=== PATIENT | male | born 1975 | race American Indian/Alaskan Native ===

== ENCOUNTER 2016-06-14 19:41 | Inpatient (IN) | payer OTHER ==
--- NOTE | 2016-06-14 20:02 | C.PDOC ---
History Of Present Illness Patient presents to the ER with a complaint of polyuria, polydipsia, and polyphagia. Denies fever, chills, dysuria, or nausea. Time Seen by Provider: 06/14/16 20:02 Chief Complaint (Nursing): Male Genitourinary History Per: Patient History/Exam Limitations: no limitations Onset/Duration Of Symptoms: Hrs Current Symptoms Are (Timing): Still Present Severity: Mild Pain Scale Rating Of: 3 Quality Of Discomfort: Other (No pain) Associated Symptoms: Urinary Symptoms (Polyuria), Other (Polydipsia, polyphagia) . denies: Fever, Chills, Nausea Alleviating Factors: None Recent travel outside of the [place]: No Additional History Per: Patient Past Medical History Reviewed: Historical Data, Nursing Documentation, Vital Signs Vital Signs: Last Vital Signs Temp 98.7 F 06/14/16 19:45 Pulse 108 H 06/14/16 20:28 Resp 18 06/14/16 20:28 BP 130/82 06/14/16 20:28 Pulse Ox 97 06/14/16 21:00 - Medical History PMH: No Chronic Diseases Surgical History: No Surg Hx Family History: States: No Known Family Hx - Social History Hx Alcohol Use: No Hx Substance Use: No - Immunization History Hx Tetanus Toxoid Vaccination: No Hx Influenza Vaccination: No Hx Pneumococcal Vaccination: No Review Of Systems Constitutional: Positive for: Other (Polyphagia, polydipsia). Negative for: Fever, Chills Gastrointestinal: Negative for: Nausea Genitourinary: Positive for: Frequency (Polydipsia). Negative for: Dysuria Physical Exam - Physical Exam Appears: Well, Non-toxic Skin: Warm, Dry Head: Atraumatic Eye(s): bilateral: Normal Inspection, PERRL, EOMI Oral Mucosa: Dry Lips: Other (Dry) Neck: Supple Chest: Symmetrical, No Tenderness Cardiovascular: Rhythm Regular, No Murmur Respiratory: No Rales, No Rhonchi, No Wheezing Gastrointestinal/Abdominal: Soft, No Tenderness Back: Normal Inspection Extremity: Normal ROM, No Pedal Edema Extremity: Bilateral: Atraumatic, Normal Color And Temperature, Normal ROM Neurological/Psych: Oriented x3, Normal Speech, Normal Cognition Gait: Steady ED Course And Treatment - Laboratory Results Result Diagrams: 06/14/16 20:14 06/14/16 20:14 ECG: Interpreted By Me, Viewed By Me ECG Rhythm: Sinus Rhythm (95), Nonspecific Changes O2 Sat by Pulse Oximetry: 97 Pulse Ox Interpretation: Normal - Radiology CXR: Interpreted by Me CXR Interpretation: No: Infiltrates, Fracture, Pnemothorax Progress Note: EKG, blood work, CXR, and urinalysis. IV fluids administered. Critical Care Time - Critical Care Note Total Time (in mins): 30 Documented critical care: time excludes all time spent performing seperately billable procedures. Disposition Discussed With Dr.: José Miguel Ramos Comment: accepted the pt on his service and took over the care at 10PM Doctor Will See Patient In The: ED Counseled Patient/Family Regarding: Studies Performed, Diagnosis - Disposition Disposition: HOSPITALIZED Disposition Time: 20:02 Condition: FAIR - POA Present On Arrival: Poor Glycemic Control - Clinical Impression Clinical Impression: Diabetes mellitus, new onset - Scribe Statement The provider has reviewed the documentation as recorded by the Scribe Darvin Kay All medical record entries made by the Scribe were at my direction and personally dictated by me. I have reviewed the chart and agree that the record accurately reflects my personal performance of the history, physical exam, medical decision making, and the department course for this patient. I have also personally directed, reviewed, and agree with the discharge instructions and disposition. Decision To Admit - Pt Status Changed To: Hospital Disposition Of: Inpatient - Admit Certification Admit to Inpatient:: After my assessment, the patient will require hospitalization for at least two midnights. This is because of the severity of symptoms shown, intensity of services needed, and/or the medical risk in this patient being treated as an outpatient. - InPatient: Physician Admission Certification: I certify that this patient requires 2 or more midnights of care for the following reason:: After my assessment, the patient will require hospitalization for at least two midnights. This is because of the severity of symptoms shown, intensity of services needed, and/or the medical risk in this patient being treated as an outpatient. - . Bed Request Type: Regular Admitting Physician: José Miguel Ramos Patient Diagnosis: Diabetes mellitus, new onset
[2016-06-14] MEDS ORDERED: Sodium Chloride 0.9% 1,000 ML IV ONE ×2 (20:04→21:27)
[2016-06-14 20:19] LABS: BASO # 0.1 K/uL (0.0-0.2); BASO % 0.6 % (0.0-2.0); EOS # 0.1 K/uL (0.0-0.7); EOS % 0.8 % (0.0-4.0); HEMATOCRIT 46.8 % (35.0-51.0); LYMPH # 2.7 K/uL (1.0-4.3); LYMPH % 22.9 % (20.0-40.0); MEAN CELL VOLUME 86.8 fL (80.0-94.0); MEAN CORPUSCULAR HEMOGLOBIN 30.1 pg (27.0-31.0); MEAN CORPUSCULAR HGB CONC 34.6 g/dL (33.0-37.0); MONO # 0.5 K/uL (0.0-0.8); MONO % 4.3 % (0.0-10.0); NRBC % 0.1 % (0.0-2.0); RED CELL DISTRIBUTION WIDTH 13.2 % (11.5-14.5); WHITE BLOOD COUNT 11.7 K/uL (4.8-10.8)
[2016-06-14 20:29] LABS: CHLORIDE 94 mmol/L (98-107); POTASSIUM 5.4 mmol/L (3.6-5.2); SODIUM 128 mmol/L (132-148)
[2016-06-14 20:31] LABS: AST/SGOT 40 U/L (17-59); BILIRUBIN,TOTAL 1.6 mg/dL (0.2-1.3); CARBON DIOXIDE 12 mmol/L (22-30); GFR AFRICAN-AMERICAN > 60
[2016-06-14 20:32] LABS: ALB/GLOB RATIO 1.2 (1.0-2.1); ALKALINE PHOSPHATASE 111 U/L (38-126); ALT/SGPT 70 U/L (21-72); BLOOD UREA NITROGEN 26 mg/dL (9-20); CALCIUM 8.8 mg/dl (8.6-10.4); TOTAL PROTEIN 8.2 g/dL (6.3-8.3)
[2016-06-14 20:33] LABS: GLUCOSE,RANDOM 551 mg/dL (75-110)
[2016-06-14 20:41] LABS: RBC URINE < 1 /hpf (0-3); URINE BACTERIA RARE (<OCC); URINE BILIRUBIN NEGATIVE (NEGATIVE); URINE BLOOD NEGATIVE (NEGATIVE); URINE COLOR Straw (YELLOW); URINE GLUCOSE (UA) 3+ mg/dL (Normal); URINE KETONE 2+ mg/dL (NEGATIVE); URINE LEUKOCYTE ESTERASE NEG Leu/uL (Negative); URINE PROTEIN NEGATIVE (NEGATIVE); URINE UROBILINOGEN NORMAL mg/dL (0.2-1.0); WBC URINE < 1 /hpf (0-5)
--- NOTE | 2016-06-14 21:35 | CP.PCM.HP ---
<Richi Rose - Last Filed: 06/14/16 23:01> History of Present Illness - History of Present Illness History of Present Illness: CC: "increased thirst, fatigue, increased urination" 40 M with no PMH presented to [facility] with complaint of polydipsia, polyuria, polyphagia, and fatigue. Patient stated that symptoms have been going on for about 1.5 weeks. He stated that have gradually been getting worse. He has intermittently experienced similar symptoms over the last 2 years. Patient stated that he came in today because today has been the worst these symptoms have been and could not take it anymore. Patient reports that he hasnt seen a physician in a few years. Patient is currently denying any pain. Patient does not exercise or follow a diet regimen. Nothing he notices alleviates or exacerbates his ymptoms. Admits to wekaness, fatigue, blurry vision. Denies fveer/chills, cp, sob, palpitations, abd pain, n/v/d, constipation, incontinence , numbness/tingling, vertigo, dizziness/lightheadedness, syncope. PMD: Denies PMH: Denies Meds: Denies Alergy: NKDA PSH: Denies Hosp: Denies FH: DM, CVA Social: Lives with significant other, denies tobacco/ETOH/illicit drug use Present on Admission - Present on Admission Any Indicators Present on Admission: Yes History of DVT/PE: No History of Uncontrolled Diabetes: Yes Urinary Catheter: No Decubitus Ulcer Present: No Review of Systems - Constitutional Constitutional: Fatigue, Increased Appetite, Weakness. absent: Chills, Excessive Sweating, Fever, Headache - EENT Eyes: Blurred Vision, Change in Vision Ears: absent: Ear Discharge, Ear Pain Nose/Mouth/Throat: Dry Mouth. absent: Bleeding Gums, Change in Voice, Hoarsness - Cardiovascular Cardiovascular: absent: Chest Pain, Chest Pain at Rest, Chest Pain with Activity , Diaphoresis, Dyspnea, Irregular Heart Rhythm, Lightheadedness, Palpitations, Pedal Edema, Syncope - Respiratory Respiratory: absent: Cough, Dyspnea, Hemoptysis, Dyspnea on Exertion - Gastrointestinal Gastrointestinal: absent: Abdominal Pain, Diarrhea, Nausea, Vomiting - Genitourinary Genitourinary: Nocturia, Urinary Frequency. absent: Difficulty Urinating, Dysuria, Urinary Incontinence, Urinary Hesitance, Urinary Urgency - Musculoskeletal Musculoskeletal: absent: Arthralgias, Back Pain, Loss of Height - Integumentary Integumentary: absent: Bleeding Lesions, New Lesions - Neurological Neurological: Weakness. absent: Dizziness, Numbness, Headaches, Loss of Vision , Paresthesias, Syncope, Tingling, Vertigo - Psychiatric Psychiatric: absent: Homicidal Ideation, Suicidal Ideation - Endocrine Endocrine: Fatigue, Polydipsia, Polyphagia, Polyuria. absent: Excessive Sweating, Heat Intolorance, Palpitations - Hematologic/Lymphatic Hematologic: absent: Easy Bleeding, Easy Bruising, Lymphadenopathy Past Patient History - Past Social History Smoking Status: Never Smoked - PSYCHIATRIC Hx Substance Use: No - SURGICAL HISTORY Hx Surgeries: No Meds Allergies/Adverse Reactions: Allergies Allergy/AdvReac Type Severity Reaction Status Date / Time No Known Allergies Allergy Verified 06/14/16 20:04 Physical Exam - Constitutional Appears: No Acute Distress - Head Exam Head Exam: ATRAUMATIC, NORMOCEPHALIC - Eye Exam Eye Exam: EOMI, Normal appearance Pupil Exam: PERRL - ENT Exam ENT Exam: Mucous Membranes Dry - Neck Exam Neck exam: Positive for: Normal Inspection - Respiratory Exam Respiratory Exam: Clear to Auscultation Bilateral, NORMAL BREATHING PATTERN - Cardiovascular Exam Cardiovascular Exam: RRR, +S1, +S2 - GI/Abdominal Exam GI & Abdominal Exam: Normal Bowel Sounds, Soft. absent: Distended, Firm, Guarding, Rebound, Tenderness - Extremities Exam Extremities exam: Positive for: normal capillary refill, pedal pulses present. Negative for: calf tenderness, pedal edema - Back Exam Back exam: absent: CVA tenderness (L), CVA tenderness (R) - Neurological Exam Neurological exam: Alert, CN II-XII Intact, Oriented x3, Reflexes Normal - Psychiatric Exam Psychiatric exam: Normal Affect, Normal Mood - Skin Skin Exam: Dry, Intact, Normal Color, Warm Results - Vital Signs Recent Vital Signs: Last Vital Signs Temp 98.7 F 06/14/16 19:45 Pulse 108 H 06/14/16 20:28 Resp 18 06/14/16 20:28 BP 130/82 06/14/16 20:28 Pulse Ox 97 06/14/16 21:00 - Labs Result Diagrams: 06/14/16 20:14 06/14/16 20:14 Labs: Laboratory Results - last 24 hr 06/14/16 06/14/16 06/14/16 20:14 20:14 20:33 WBC 11.7 H RBC 5.39 Hgb 16.2 Hct 46.8 MCV 86.8 MCH 30.1 MCHC 34.6 RDW 13.2 Plt Count 184 MPV 11.0 Neut % (Auto) 71.4 Lymph % (Auto) 22.9 [place] % (Auto) 4.3 Eos % (Auto) 0.8 Baso % (Auto) 0.6 Neut # 8.3 H Lymph # 2.7 [place] # 0.5 Eos # 0.1 Baso # 0.1 Sodium 128 L Potassium 5.4 H Chloride 94 L Carbon Dioxide 12 L Anion Gap 27 H BUN 26 H Creatinine 1.4 Est GFR ( Amer) > 60 Est GFR (Non-Af Amer) 56 Random Glucose 551 H* Calcium 8.8 Total Bilirubin 1.6 H AST 40 ALT 70 Alkaline Phosphatase 111 Total Protein 8.2 Albumin 4.5 Globulin 3.7 Albumin/Globulin Ratio 1.2 Lipase 94 Urine Color Straw Urine Clarity Clear Urine pH 5.0 Ur Specific [place] 1.031 H Urine Protein Negative Urine Glucose (UA) 3+ H Urine Ketones 2+ H Urine Blood Negative Urine Nitrate Negative Urine Bilirubin Negative Urine Urobilinogen Normal Ur Leukocyte Esterase Neg Urine WBC (Auto) < 1 Urine RBC (Auto) < 1 Ur Squamous Epith Cells < 1 Urine Bacteria Rare Serum Ketones Small Assessment & Plan - Assessment and Plan (Free Text) Plan: 1. Hyperglycemia Med/surg NS 150 cc/hr ISS Accuchecks EKG HA1c tsh/t4, Lipid panel BNP 2. Hyperkalemia K+ 5.4 asymptomatic EKG Insulin 10 units SC ONCE follow up BMP at midnight 3. Prophylactic Measures SCDs Lovenox 40 mg SC daily Protonix 40 mg PO daily HHD with mod carb <José Miguel Ramos - Last Filed: 06/15/16 06:32> Results - Vital Signs Recent Vital Signs: Last Vital Signs Temp 98.4 F 06/15/16 02:30 Pulse 90 06/15/16 02:30 Resp 18 06/15/16 02:30 BP 129/82 06/15/16 02:30 Pulse Ox 100 06/15/16 02:30 - Labs Result Diagrams: 06/15/16 04:11 06/15/16 04:11 Labs: Laboratory Results - last 24 hr 06/14/16 06/15/16 06/15/16 23:24 04:11 04:11 WBC 11.4 H RBC 4.74 Hgb 14.0 D Hct 41.3 MCV 87.2 MCH 29.5 MCHC 33.8 RDW 13.5 Plt Count 140 MPV 10.7 Neut % (Auto) 67.6 Lymph % (Auto) 24.9 [place] % (Auto) 5.7 Eos % (Auto) 0.9 Baso % (Auto) 0.9 Neut # 7.7 H Lymph # 2.8 [place] # 0.7 Eos # 0.1 Baso # 0.1 PT 11.0 INR 1.0 APTT 26 Sodium Potassium Chloride Carbon Dioxide Anion Gap BUN Creatinine Est GFR ( Amer) Est GFR (Non-Af Amer) POC Glucose (mg/dL) 316 H Random Glucose Calcium Phosphorus Magnesium Total Bilirubin AST ALT Alkaline Phosphatase Total Protein Albumin Globulin Albumin/Globulin Ratio 06/15/16 04:11 WBC RBC Hgb Hct MCV MCH MCHC RDW Plt Count MPV Neut % (Auto) Lymph % (Auto) [place] % (Auto) Eos % (Auto) Baso % (Auto) Neut # Lymph # [place] # Eos # Baso # PT INR APTT Sodium 136 Potassium 4.1 Chloride 106 Carbon Dioxide 15 L Anion Gap 19 BUN 20 Creatinine 1.1 Est GFR ( Amer) > 60 Est GFR (Non-Af Amer) > 60 POC Glucose (mg/dL) Random Glucose 253 H Calcium 7.6 L Phosphorus 3.3 Magnesium 2.3 Total Bilirubin 1.2 AST 33 ALT 43 Alkaline Phosphatase 79 Total Protein 6.3 Albumin 3.4 L D Globulin 2.9 Albumin/Globulin Ratio 1.2 Assessment & Plan - Date & Time Date: 06/15/16 (I have seen and examined the patient. I agree with the findings and plan of care as documented by Dr. Rose. Patient with new onset diabetes. Not previously diagnosed but had been experiencing symptoms consistent with diabetes in last 1.5 years. Not acidotic. IVF. Insulin with accuchecks. Also with hyperkalemia. Receiving insulin and fluids. Recheck BMP in AM. Monitor for acute changes.) Time: 06:29 Attending/Attestation - Attestation I have personally seen and examined this patient.: Yes I have fully participated in the care of the patient.: Yes I have reviewed all pertinent clinical information: Yes
[2016-06-14] MEDS ORDERED: Sodium Chloride 0.9% 1,000 ML ONE (21:43)
[2016-06-14] MEDS ORDERED: (Novolin R) Insulin Human Regular 100 units/ml vial SC ONE (21:48)
[2016-06-14] MEDS ORDERED: (Novolin R) Insulin Human Regular 100 units/ml vial ONE ×2 (21:50→21:51)
[2016-06-15] MEDS: Sodium Chloride 0.9% 1,000 ML IV SCH ×3 (01:06→19:35)
[2016-06-15 04:14] LABS: BASO # 0.1 K/uL (0.0-0.2); BASO % 0.9 % (0.0-2.0); EOS # 0.1 K/uL (0.0-0.7); EOS % 0.9 % (0.0-4.0); HEMATOCRIT 41.3 % (35.0-51.0); LYMPH # 2.8 K/uL (1.0-4.3); LYMPH % 24.9 % (20.0-40.0); MEAN CELL VOLUME 87.2 fL (80.0-94.0); MEAN CORPUSCULAR HEMOGLOBIN 29.5 pg (27.0-31.0); MEAN CORPUSCULAR HGB CONC 33.8 g/dL (33.0-37.0); MEAN PLATELET VOLUME 10.7 fL (7.2-11.7); MONO # 0.7 K/uL (0.0-0.8); MONO % 5.7 % (0.0-10.0); NRBC % 0.2 % (0.0-2.0); RED CELL DISTRIBUTION WIDTH 13.5 % (11.5-14.5); WHITE BLOOD COUNT 11.4 K/uL (4.8-10.8)
[2016-06-15 04:23] LABS: CHLORIDE 106 mmol/L (98-107)
[2016-06-15 04:24] LABS: POTASSIUM 4.1 mmol/L (3.6-5.2); SODIUM 136 mmol/L (132-148)
[2016-06-15 04:26] LABS: ALB/GLOB RATIO 1.2 (1.0-2.1); ALKALINE PHOSPHATASE 79 U/L (38-126); ALT/SGPT 43 U/L (21-72); AST/SGOT 33 U/L (17-59); BILIRUBIN,TOTAL 1.2 mg/dL (0.2-1.3); BLOOD UREA NITROGEN 20 mg/dL (9-20); CARBON DIOXIDE 15 mmol/L (22-30); GFR AFRICAN-AMERICAN > 60; GLUCOSE,RANDOM 253 mg/dL (75-110); PHOSPHOROUS 3.3 mg/dL (2.5-4.5); TOTAL PROTEIN 6.3 g/dL (6.3-8.3)
[2016-06-15 04:27] LABS: CALCIUM 7.6 mg/dl (8.6-10.4); MAGNESIUM 2.3 mg/dL (1.6-2.3)
[2016-06-15] MEDS ORDERED: (Novolin R) Insulin Human Regular 100 units/ml vial ONE ×2 (07:28→12:53)
[2016-06-15] MEDS: (Novolin R) Insulin Human Regular 100 units/ml vial SC SCH ×4 (07:28→21:54)
--- NOTE | 2016-06-15 08:38 | RAD ---
HISTORY: Diabetic COMPARISON: None available. TECHNIQUE: Chest, one view. FINDINGS: Examination limited by habitus. LUNGS: No focal consolidation. Please note that chest x-ray has limited sensitivity for the detection of pulmonary masses. PLEURA: No significant pleural effusion identified. No definite pneumothorax . CARDIOVASCULAR: The cardiomediastinal silhouette appears within normal limits of size. OSSEOUS STRUCTURES: No acute osseous abnormality identified. VISUALIZED UPPER ABDOMEN: Unremarkable. OTHER FINDINGS: None. IMPRESSION: No focal consolidation, significant pleural effusion, or definite pneumothorax identified.
--- NOTE | 2016-06-15 09:17 | CP.PCM.PN ---
<Jazmin Kamara - Last Filed: 06/15/16 15:13> Subjective - Date & Time of Evaluation Date of Evaluation: 06/15/16 Time of Evaluation: 09:16 - Subjective Subjective: Patient seen and examined at bedside. He reports he feels improved from initial presentation to emergency room. Patient states he is less weak and is having less urinary frequency. Patient reports blurry vision. He denies abdominal pain and shortness of breath. Patient is aware of diagnosis of diabetes. He admits to family history of diabetes including his 50 year old brother with history of stroke who was recently newly diagnosed. Patient to have dietary counseling. He denies chest pain and shortness of breath. Objective - Vital Signs/Intake and Output Vital Signs (last 24 hours): Temp Pulse Resp BP Pulse Ox 98.2 F 72 18 125/78 99 06/15/16 06:30 06/15/16 07:23 06/15/16 07:23 06/15/16 07:23 06/15/16 07:23 - Medications Medications: Current Medications Enoxaparin Sodium (Lovenox) 40 mg SC DAILY [facility] Sodium Chloride (Sodium Chloride 0.9%) 1,000 mls @ 150 mls/hr IV .Q6H40M [facility] Last Admin: 06/15/16 06:54 Dose: 150 mls/hr Insulin Human Regular (Novolin R) 0 unit SC ACHS [facility] PRN Reason: Protocol Last Admin: 06/15/16 07:28 Dose: 2 unit Ondansetron HCl (Zofran Inj) 4 mg IVP Q6 PRN PRN Reason: Nausea/Vomiting Pantoprazole Sodium (Protonix Ec Tab) 40 mg PO DAILY [facility] - Labs Labs: 06/15/16 04:11 06/15/16 04:11 PT 11.0 SECONDS (9.7-12.2) 06/15/16 04:11 INR 1.0 06/15/16 04:11 APTT 26 SECONDS (21-34) 06/15/16 04:11 - Constitutional Appears: Non-toxic, No Acute Distress - Head Exam Head Exam: ATRAUMATIC, NORMAL INSPECTION, NORMOCEPHALIC - Eye Exam Eye Exam: EOMI, Normal appearance, PERRL - ENT Exam ENT Exam: Mucous Membranes Moist - Neck Exam Neck Exam: Full ROM, Normal Inspection - Respiratory Exam Respiratory Exam: Clear to Ausculation Bilateral, NORMAL BREATHING PATTERN. absent: Rales, Rhonchi, Wheezes - Cardiovascular Exam Cardiovascular Exam: +S1, +S2. absent: Tachycardia - GI/Abdominal Exam GI & Abdominal Exam: Soft, Normal Bowel Sounds. absent: Firm, Guarding, Tenderness - Extremities Exam Extremities Exam: Normal Inspection. absent: Pedal Edema, Tenderness - Neurological Exam Neurological Exam: Alert, Awake, Oriented x3 - Psychiatric Exam Psychiatric exam: Normal Affect, Normal Mood - Skin Skin Exam: Intact, Normal Color, Warm Assessment and Plan - Assessment and Plan (Free Text) Assessment: New Onset Diabetes Mellitus Type II follow-up hemoglobin a1c Started on Novolin sliding scale and Lantus 10 U sc daily NS 150 cc/hr Accuchecks Diabetic Dietary Counseling Monitor glucose Hypertriglycerides Triglycerides of 1332 Started on Gemfibrozil 600 mg po BID Hypercholesterol Cholesterol 241 Started on Crestor 5 mg po HS Hyperkalemia Resolved potassium 4.1 K+ 5.4 asymptomatic EKG Insulin 10 units SC ONCE follow up BMP at midnight Prophylactic Measures SCDs Lovenox 40 mg SC daily Protonix 40 mg PO daily HHD with mod carb <Brian Tinoco - Last Filed: 06/15/16 16:55> Objective - Vital Signs/Intake and Output Vital Signs (last 24 hours): Temp Pulse Resp BP Pulse Ox 98.3 F 75 18 162/88 H 97 06/15/16 15:40 06/15/16 15:40 06/15/16 15:40 06/15/16 15:40 06/15/16 15:40 - Medications Medications: Current Medications Enoxaparin Sodium (Lovenox) 40 mg SC DAILY [facility] Last Admin: 06/15/16 10:30 Dose: 40 mg Gemfibrozil (Lopid) 600 mg PO BID [facility] Sodium Chloride (Sodium Chloride 0.9%) 1,000 mls @ 150 mls/hr IV .Q6H40M [facility] Last Admin: 06/15/16 06:54 Dose: 150 mls/hr Insulin Glargine (Lantus) 10 unit SC DAILY [facility] Last Admin: 06/15/16 14:50 Dose: 10 units Insulin Human Regular (Novolin R) 0 unit SC [facility] PRN Reason: Protocol Last Admin: 06/15/16 13:00 Dose: 4 unit Ondansetron HCl (Zofran Inj) 4 mg IVP Q6 PRN PRN Reason: Nausea/Vomiting Pantoprazole Sodium (Protonix Ec Tab) 40 mg PO DAILY [facility] Last Admin: 06/15/16 10:30 Dose: 40 mg Rosuvastatin Calcium (Crestor) 5 mg PO HS [facility] - Labs Labs: 06/15/16 04:11 06/15/16 04:11 PT 11.0 SECONDS (9.7-12.2) 06/15/16 04:11 INR 1.0 06/15/16 04:11 APTT 26 SECONDS (21-34) 06/15/16 04:11 Attending/Attestation - Attestation I have personally seen and examined this patient.: Yes I have fully participated in the care of the patient.: Yes I have reviewed all pertinent clinical information, including history, physical exam and plan: Yes Notes (Text): 06/15/16 16:53 Patient seen and examined at bedside Patient appears comfortable Stated that he is feeling better now after treatment #1. New-onset diabetes mellitus. Patient started on insulin sliding scale and Lantus Follow-up per hemoglobin A1c level. He will be discharged on oral hypoglycemic agents #2. Hypertriglyceridemia .Patient's hypertriglyceridemia is likely secondary to uncontrolled diabetes mellitus However patient started on gemfibrozil. We will check the lipid level again. Hypertriglyceridemia should improve with the better control were diabetes mellitus. #3. Hypercholesterolemia. Patient started on Crestor. Discharge planning likely in the next 24 hours if the patient is medically stable.
[2016-06-15] MEDS: Pantoprazole 40 mg EC Tab PO SCH (10:30)
[2016-06-15] MEDS: Enoxaparin 40 mg Syringe SC SCH (10:30)
[2016-06-15 12:49] LABS: CHLORIDE 103 mmol/L (98-107); SODIUM 134 mmol/L (132-148)
[2016-06-15 12:50] LABS: POTASSIUM 4.5 mmol/L (3.6-5.2)
[2016-06-15 12:52] LABS: CARBON DIOXIDE 18 mmol/L (22-30); CHOLESTEROL 241 mg/dL (0-199); GFR AFRICAN-AMERICAN > 60
[2016-06-15 12:53] LABS: BLOOD UREA NITROGEN 16 mg/dL (9-20); CALCIUM 7.9 mg/dl (8.6-10.4); GLUCOSE,RANDOM 335 mg/dL (75-110)
[2016-06-15 13:19] LABS: T4 5.42 ug/dL (5.5-11.0)
[2016-06-15 13:30] LABS: THYROID STIMULATING HORMONE 0.57 mIU/L (0.46-4.68)
[2016-06-15] MEDS ORDERED: (Lantus) Insulin Glargine, Recombinant SC ONE (14:46)
[2016-06-15] MEDS: (Lantus) Insulin Glargine, Recombinant SC SCH (14:50)
[2016-06-15 15:41] VITALS: O2SAT 97
[2016-06-15] MEDS ORDERED: Influenza Virus Vaccine 45 mcg/0.5 ml Syr IM ONE (18:00)
[2016-06-15] MEDS ORDERED: Pneumococcal 23-Valent Vaccine SC ONE (18:00)
[2016-06-16 00:24] VITALS: RESP 20
[2016-06-16] MEDS: (Novolin R) Insulin Human Regular 100 units/ml vial SC SCH ×3 (08:10→17:46)
[2016-06-16 08:17] LABS: BASO # 0.1 K/uL (0.0-0.2); BASO % 0.9 % (0.0-2.0); EOS # 0.2 K/uL (0.0-0.7); HEMATOCRIT 40.8 % (35.0-51.0); LYMPH # 2.2 K/uL (1.0-4.3); LYMPH % 34.6 % (20.0-40.0); MEAN CELL VOLUME 86.8 fL (80.0-94.0); MEAN CORPUSCULAR HEMOGLOBIN 29.8 pg (27.0-31.0); MEAN CORPUSCULAR HGB CONC 34.3 g/dL (33.0-37.0); MEAN PLATELET VOLUME 10.8 fL (7.2-11.7); MONO # 0.4 K/uL (0.0-0.8); MONO % 6.7 % (0.0-10.0); NRBC % 0.1 % (0.0-2.0); WHITE BLOOD COUNT 6.3 K/uL (4.8-10.8)
[2016-06-16 08:32] LABS: CHLORIDE 104 mmol/L (98-107)
[2016-06-16 08:33] LABS: POTASSIUM 4.5 mmol/L (3.6-5.2); SODIUM 136 mmol/L (132-148)
[2016-06-16 08:34] LABS: ALB/GLOB RATIO 1.2 (1.0-2.1); AST/SGOT 35 U/L (17-59); BILIRUBIN,TOTAL 1.2 mg/dL (0.2-1.3); CARBON DIOXIDE 22 mmol/L (22-30); CHOLESTEROL 238 mg/dL (0-199); GFR AFRICAN-AMERICAN > 60; TOTAL PROTEIN 6.4 g/dL (6.3-8.3)
[2016-06-16 08:35] LABS: ALKALINE PHOSPHATASE 83 U/L (38-126); ALT/SGPT 56 U/L (21-72); BLOOD UREA NITROGEN 13 mg/dL (9-20); CALCIUM 8.1 mg/dl (8.6-10.4); GLUCOSE,RANDOM 289 mg/dL (75-110); PHOSPHOROUS 3.1 mg/dL (2.5-4.5)
[2016-06-16 08:36] LABS: MAGNESIUM 2.1 mg/dL (1.6-2.3)
[2016-06-16] MEDS: Pantoprazole 40 mg EC Tab PO SCH (11:37)
[2016-06-16] MEDS: Enoxaparin 40 mg Syringe SC SCH (11:38)
[2016-06-16] MEDS: (Lantus) Insulin Glargine, Recombinant SC SCH (11:38)
[2016-06-16] MEDS: Sodium Chloride 0.9% 1,000 ML IV SCH (12:10)
--- NOTE | 2016-06-16 15:11 | CP.PCM.DIS ---
<Richi Rose - Last Filed: 06/16/16 17:54> Provider - Provider Date of Admission: 06/14/16 22:37 Attending physician: José Miguel Ramos MD Primary care physician: None Consults: none Time Spent in preparation of Discharge (in minutes): 45 Diagnosis - Discharge Diagnosis (1) Diabetes mellitus, new onset Status: Acute Comment: see hospital course Hospital Course - Lab Results Lab Results: Most Recent Lab Values WBC 6.3 K/uL (4.8-10.8) 06/16/16 08:09 RBC 4.70 Mil/uL (4.40-5.90) 06/16/16 08:09 Hgb 14.0 g/dL (12.0-18.0) 06/16/16 08:09 Hct 40.8 % (35.0-51.0) 06/16/16 08:09 MCV 86.8 fL (80.0-94.0) 06/16/16 08:09 MCH 29.8 pg (27.0-31.0) 06/16/16 08:09 MCHC 34.3 g/dL (33.0-37.0) 06/16/16 08:09 RDW 13.0 % (11.5-14.5) 06/16/16 08:09 Plt Count 126 K/uL (130-400) L 06/16/16 08:09 MPV 10.8 fL (7.2-11.7) 06/16/16 08:09 Neut % (Auto) 54.8 % (50.0-75.0) 06/16/16 08:09 Lymph % (Auto) 34.6 % (20.0-40.0) 06/16/16 08:09 [place] % (Auto) 6.7 % (0.0-10.0) 06/16/16 08:09 Eos % (Auto) 3.0 % (0.0-4.0) 06/16/16 08:09 Baso % (Auto) 0.9 % (0.0-2.0) 06/16/16 08:09 Neut # 3.4 K/uL (1.8-7.0) 06/16/16 08:09 Lymph # 2.2 K/uL (1.0-4.3) 06/16/16 08:09 [place] # 0.4 K/uL (0.0-0.8) 06/16/16 08:09 Eos # 0.2 K/uL (0.0-0.7) 06/16/16 08:09 Baso # 0.1 K/uL (0.0-0.2) 06/16/16 08:09 PT 11.0 SECONDS (9.7-12.2) 06/15/16 04:11 INR 1.0 06/15/16 04:11 APTT 26 SECONDS (21-34) 06/15/16 04:11 Sodium 136 mmol/L (132-148) 06/16/16 08:09 Potassium 4.5 mmol/L (3.6-5.2) 06/16/16 08:09 Chloride 104 mmol/L (98-107) 06/16/16 08:09 Carbon Dioxide 22 mmol/L (22-30) 06/16/16 08:09 Anion Gap 15 (10-20) 06/16/16 08:09 BUN 13 mg/dL (9-20) 06/16/16 08:09 Creatinine 1.1 MG/DL (0.8-1.5) 06/16/16 08:09 Est GFR ( Amer) > 60 06/16/16 08:09 Est GFR (Non-Af Amer) > 60 06/16/16 08:09 POC Glucose (mg/dL) 352 mg/dL (65-110) H 06/16/16 11:05 Random Glucose 289 mg/dL (75-110) H 06/16/16 08:09 Hemoglobin A1c 11.0 % (4.2-6.5) H 06/15/16 12:33 Calcium 8.1 mg/dl (8.6-10.4) L 06/16/16 08:09 Phosphorus 3.1 mg/dL (2.5-4.5) 06/16/16 08:09 Magnesium 2.1 mg/dL (1.6-2.3) 06/16/16 08:09 Total Bilirubin 1.2 mg/dL (0.2-1.3) 06/16/16 08:09 AST 35 U/L (17-59) 06/16/16 08:09 ALT 56 U/L (21-72) 06/16/16 08:09 Alkaline Phosphatase 83 U/L (38-126) 06/16/16 08:09 NT-Pro-B Natriuret Pep 12.9 pg/mL (0-450) 06/14/16 12:30 Total Protein 6.4 g/dL (6.3-8.3) 06/16/16 08:09 Albumin 3.5 g/dL (3.5-5.0) 06/16/16 08:09 Globulin 2.9 gm/dL (2.2-3.9) 06/16/16 08:09 Albumin/Globulin Ratio 1.2 (1.0-2.1) 06/16/16 08:09 Triglycerides 1349 mg/dL (0-149) H 06/16/16 08:09 Cholesterol 238 mg/dL (0-199) H 06/16/16 08:09 LDL Cholesterol Direct < 30 mg/dL (0-129) 06/16/16 08:09 HDL Cholesterol 25 mg/dL (30-70) L 06/16/16 08:09 Lipase 94 U/L (23-300) 06/14/16 20:14 Thyroxine (T4) 5.42 ug/dL (5.5-11.0) L 06/14/16 12:30 TSH 3rd Generation 0.57 mIU/L (0.46-4.68) 06/14/16 12:30 Urine Color Straw (YELLOW) 06/14/16 20:33 Urine Clarity Clear (Clear) 06/14/16 20:33 Urine pH 5.0 (5.0-8.0) 06/14/16 20:33 Ur Specific [place] 1.031 (1.003-1.030) H 06/14/16 20:33 Urine Protein Negative mg/dL (NEGATIVE) 06/14/16 20:33 Urine Glucose (UA) 3+ mg/dL (Normal) H 06/14/16 20:33 Urine Ketones 2+ mg/dL (NEGATIVE) H 06/14/16 20:33 Urine Blood Negative (NEGATIVE) 06/14/16 20:33 Urine Nitrate Negative (NEGATIVE) 06/14/16 20:33 Urine Bilirubin Negative (NEGATIVE) 06/14/16 20:33 Urine Urobilinogen Normal mg/dL (0.2-1.0) 06/14/16 20:33 Ur Leukocyte Esterase Neg Girish/uL (Negative) 06/14/16 20:33 Urine WBC (Auto) < 1 /hpf (0-5) 06/14/16 20:33 Urine RBC (Auto) < 1 /hpf (0-3) 06/14/16 20:33 Ur Squamous Epith Cells < 1 /hpf (0-5) 06/14/16 20:33 Urine Bacteria Rare (<OCC) 06/14/16 20:33 Serum Ketones Small (NEGATIVE) 06/14/16 20:14 - Hospital Course Hospital Course: 40 M with no PMH presented to [facility] with complaint of polydipsia, polyuria, polyphagia, and fatigue. Patient stated that symptoms have been going on for about 1.5 weeks. He stated that have gradually been getting worse. He has intermittently experienced similar symptoms over the last 2 years. Patient stated that he came in today because today has been the worst these symptoms have been and could not take it anymore. Patient reports that he hasnt seen a physician in a few years. Patient is currently denying any pain. Patient does not exercise or follow a diet regimen. Nothing he notices alleviates or exacerbates his ymptoms. Admits to wekaness, fatigue, blurry vision. Denies fveer/chills, cp, sob, palpitations, abd pain, n/v/d, constipation, incontinence , numbness/tingling, vertigo, dizziness/lightheadedness, syncope. Patient was admitted for new onset diabetes milletus. Patient was given 2 L bolus of iv fluids then kept on IV fluids at a high rate. He was given Insulin 10 units SC once in ED. He was placed on insulin sliding scale with accuchecks. The next day, patient was continued on same regimen. His HA1C was determined to be 11.0. He was given a heart healthy and moderate carb consistency diet. He continued on same medical regimen until 06/16 when he was deemed medically stable for discharge by Dr. Russell. He was sent home with glucometer, lancets and test strips. He was also started on Metformin, Januvia, Lopid, and Simvastatin. This is a summary of the hospital course. Please refer to EMR for more specific details. Discharge Exam - Head Exam Head Exam: ATRAUMATIC, NORMAL INSPECTION, NORMOCEPHALIC - Eye Exam Eye Exam: EOMI, Normal appearance Pupil Exam: PERRL - ENT Exam ENT Exam: Mucous Membranes Moist - Neck Exam Neck exam: Normal Inspection - Respiratory Exam Respiratory Exam: Clear to PA & Lateral, NORMAL BREATHING PATTERN - Cardiovascular Exam Cardiovascular Exam: REGULAR RHYTHM, +S1, +S2 - GI/Abdominal Exam GI & Abdominal Exam: Normal Bowel Sounds, Soft. absent: Tenderness - Extremities Exam Extremities exam: normal capillary refill, pedal pulses present - Back Exam Back exam: absent: CVA tenderness (L), CVA tenderness (R) - Neurological Exam Neurological exam: Alert, CN II-XII Intact, Oriented x3 - Psychiatric Exam Psychiatric exam: Normal Affect, Normal Mood - Skin Skin Exam: Dry, Intact, Normal Color, Warm Discharge Plan - Discharge Medications Prescriptions: Blood Sugar Diagnostic [Test Strips] 1 each ACHS #180 strip RX: Gemfibrozil [Lopid] 600 mg PO BID #60 tab Lancets [Glucocom Lancets] 1 each ACHS #180 each RX: metFORMIN [glucOPHAGE] 1,000 mg PO BID #60 tab RX: Simvastatin 10 mg PO HS #30 tablet SITagliptin [Januvia] 50 mg PO BID #60 tab - Follow Up Plan Condition: STABLE Disposition: HOME/ ROUTINE Instructions: Gemfibrozil (By mouth), Simvastatin (By mouth), Metformin (By mouth), Sitagliptin (By mouth), How to Check Your Blood Sugar (DC), How to Check Your Blood Sugar (GEN), Diabetes Mellitus Type 2 in Adults (DC), Diabetes Mellitus Type 2 in Adults (GEN), Meal Planning with Diabetes Exchanges (DC), Meal Planning with Diabetes Exchanges (GEN) Additional Instructions: Patient medically stable for discharge to home by Dr. Russell. Patient to take new medications Metformin 1,000 mg by mouth twice per day, Januvia 50 mg ny mouth twice per day, Lopid 600 mg by mouth daily, Simvastatin 10 mg by mouth at bedtime. Patient is to establish and follow up with PMD (Dr. Yanez) at [facility] within 1 week of discharge. Patient may resume physical activity as tolerated. Patient is encouraged to eat a low carb diet, exercise regularly, and drink about 8 cups of water per day. Please return to ER if symptoms persist or condition worsens. All instructions stated above were discussed in detail with patient. He verbalized understanding and agreement. Referrals: Yareli Yanez MD [Staff Provider] - <Avril Russell V - Last Filed: 06/16/16 23:32> Provider - Provider Date of Admission: 06/14/16 22:37 Attending physician: José Miguel Ramos MD Hospital Course - Lab Results Lab Results: Most Recent Lab Values WBC 6.3 K/uL (4.8-10.8) 06/16/16 08:09 RBC 4.70 Mil/uL (4.40-5.90) 06/16/16 08:09 Hgb 14.0 g/dL (12.0-18.0) 06/16/16 08:09 Hct 40.8 % (35.0-51.0) 06/16/16 08:09 MCV 86.8 fL (80.0-94.0) 06/16/16 08:09 MCH 29.8 pg (27.0-31.0) 06/16/16 08:09 MCHC 34.3 g/dL (33.0-37.0) 06/16/16 08:09 RDW 13.0 % (11.5-14.5) 06/16/16 08:09 Plt Count 126 K/uL (130-400) L 06/16/16 08:09 MPV 10.8 fL (7.2-11.7) 06/16/16 08:09 Neut % (Auto) 54.8 % (50.0-75.0) 06/16/16 08:09 Lymph % (Auto) 34.6 % (20.0-40.0) 06/16/16 08:09 [place] % (Auto) 6.7 % (0.0-10.0) 06/16/16 08:09 Eos % (Auto) 3.0 % (0.0-4.0) 06/16/16 08:09 Baso % (Auto) 0.9 % (0.0-2.0) 06/16/16 08:09 Neut # 3.4 K/uL (1.8-7.0) 06/16/16 08:09 Lymph # 2.2 K/uL (1.0-4.3) 06/16/16 08:09 [place] # 0.4 K/uL (0.0-0.8) 06/16/16 08:09 Eos # 0.2 K/uL (0.0-0.7) 06/16/16 08:09 Baso # 0.1 K/uL (0.0-0.2) 06/16/16 08:09 PT 11.0 SECONDS (9.7-12.2) 06/15/16 04:11 INR 1.0 06/15/16 04:11 APTT 26 SECONDS (21-34) 06/15/16 04:11 Sodium 136 mmol/L (132-148) 06/16/16 08:09 Potassium 4.5 mmol/L (3.6-5.2) 06/16/16 08:09 Chloride 104 mmol/L (98-107) 06/16/16 08:09 Carbon Dioxide 22 mmol/L (22-30) 06/16/16 08:09 Anion Gap 15 (10-20) 06/16/16 08:09 BUN 13 mg/dL (9-20) 06/16/16 08:09 Creatinine 1.1 MG/DL (0.8-1.5) 06/16/16 08:09 Est GFR ( Amer) > 60 06/16/16 08:09 Est GFR (Non-Af Amer) > 60 06/16/16 08:09 POC Glucose (mg/dL) 284 mg/dL (65-110) H 06/16/16 16:14 Random Glucose 289 mg/dL (75-110) H 06/16/16 08:09 Hemoglobin A1c 11.0 % (4.2-6.5) H 06/15/16 12:33 Calcium 8.1 mg/dl (8.6-10.4) L 06/16/16 08:09 Phosphorus 3.1 mg/dL (2.5-4.5) 06/16/16 08:09 Magnesium 2.1 mg/dL (1.6-2.3) 06/16/16 08:09 Total Bilirubin 1.2 mg/dL (0.2-1.3) 06/16/16 08:09 AST 35 U/L (17-59) 06/16/16 08:09 ALT 56 U/L (21-72) 06/16/16 08:09 Alkaline Phosphatase 83 U/L (38-126) 06/16/16 08:09 NT-Pro-B Natriuret Pep 12.9 pg/mL (0-450) 06/14/16 12:30 Total Protein 6.4 g/dL (6.3-8.3) 06/16/16 08:09 Albumin 3.5 g/dL (3.5-5.0) 06/16/16 08:09 Globulin 2.9 gm/dL (2.2-3.9) 06/16/16 08:09 Albumin/Globulin Ratio 1.2 (1.0-2.1) 06/16/16 08:09 Triglycerides 1349 mg/dL (0-149) H 06/16/16 08:09 Cholesterol 238 mg/dL (0-199) H 06/16/16 08:09 LDL Cholesterol Direct < 30 mg/dL (0-129) 06/16/16 08:09 HDL Cholesterol 25 mg/dL (30-70) L 06/16/16 08:09 Lipase 94 U/L (23-300) 06/14/16 20:14 Thyroxine (T4) 5.42 ug/dL (5.5-11.0) L 06/14/16 12:30 TSH 3rd Generation 0.57 mIU/L (0.46-4.68) 06/14/16 12:30 Urine Color Straw (YELLOW) 06/14/16 20:33 Urine Clarity Clear (Clear) 06/14/16 20:33 Urine pH 5.0 (5.0-8.0) 06/14/16 20:33 Ur Specific [place] 1.031 (1.003-1.030) H 06/14/16 20:33 Urine Protein Negative mg/dL (NEGATIVE) 06/14/16 20:33 Urine Glucose (UA) 3+ mg/dL (Normal) H 06/14/16 20:33 Urine Ketones 2+ mg/dL (NEGATIVE) H 06/14/16 20:33 Urine Blood Negative (NEGATIVE) 06/14/16 20:33 Urine Nitrate Negative (NEGATIVE) 06/14/16 20:33 Urine Bilirubin Negative (NEGATIVE) 06/14/16 20:33 Urine Urobilinogen Normal mg/dL (0.2-1.0) 04/29/17 20:33 Ur Leukocyte Esterase Neg Girish/uL (Negative) 06/14/16 20:33 Urine WBC (Auto) < 1 /hpf (0-5) 06/14/16 20:33 Urine RBC (Auto) < 1 /hpf (0-3) 06/14/16 20:33 Ur Squamous Epith Cells < 1 /hpf (0-5) 06/14/16 20:33 Urine Bacteria Rare (<OCC) 06/14/16 20:33 Serum Ketones Small (NEGATIVE) 06/14/16 20:14 Attending/Attestation - Attestation I have personally seen and examined this patient.: Yes I have fully participated in the care of the patient.: Yes I have reviewed all pertinent clinical information, including history, physical exam and plan: Yes Notes (Text): Patient seen, examined, and case discussed with day-time resident. Patient seen at bedside. Patient denies acute complaints. Patient reports he is feeling better. I had lulu discussion with patient regards his newly diagnosis of diabetes. Patient has strong family for diabetes including his brother who has recently suffered a stroke. Patient's a1c shows 11, which is uncontrolled in regards to normal of a1c: 6.5. I explained to the patient he needs to start changes to his diet and exercise given the severity of his diabetes. Discussed with sequela of diabetes if continues to be uncontrolled including but limited stroke, heart attack, blindness, kidney failure requiring dialysis, amputation, neuropathy, and delayed wound healing. Patient was livid in regards learning these risks. Discussed with patient, he will need to check his sugars about 4x a day (3 prior to meals, once before going to bed) and will need to bring this sugar diary to his next follow-up appointment. Patient started on Metformin 1000mg PO bid and Januvia 50mg PO daily considering he has not attempting [id number]. Patient also advised when he follow-up in regards to his diabetes he will need annual checkups to podiatry and ophthalmology for screening exams and to work with the diabetic educators. Also discussed with the patient he has hypertriglyceridemia likely influenced by his uncontrolled diabetes. Again, advised for low fat diet. Patient to continue Gemfibrozil and Simvastatin (switched from Crestor due to affordable) and follow-up in 3-4 months for fasting lipid. Patient is medically stable for discharge. Patient advised to follow-up with the [facility] ([phone]) to establish care and follow-up for diabetic management. Prescriptions: 1) Metformin 1000mg PO bid 2) Januvia 50mg PO daily 3) Simvastatin 10mg PO qHS 4) Gemfibrozil 600mg PO bid 5) Easy Max Glucometer (#1), test lancets and strips (1 month supply) Discharge Diagnoses: 1) New-onset diabetes 2) Hypertriglyceridemia 3) Dehydration secondary to uncontrolled diabetes 4) Hypokalemia This is a summary of patient's hospitalization. Please see EMR for further details.
--- NOTE | 2016-06-16 15:41 | CARD ---
APPROVED REPORT EKG Measurement Heart [id number] <Conclusion> Normal sinus rhythm Normal ECG
[2016-06-16 16:36] VITALS: BP 151/78; PULSE 80; TEMP 98.7
== END 2016-06-16 18:15 | disposition home or self-care (01) | DRG 294 ==
LOC: C.ER 19:41 → C.9E 22:37 → C.3T 06-15 14:45
PROVIDERS: ADMIT Family Medicine; ATTEND Family Medicine
DX: E11.65 Type 2 diabetes mellitus with hyperglycemia (principal); E87.5 Hyperkalemia; E78.00 Pure hypercholesterolemia, unspecified; Z79.4 Long term (current) use of insulin

== ENCOUNTER 2016-06-18 18:27 | Emergency (ER) | payer OTHER ==
[2016-06-18 18:42] VITALS: TEMP 99.2; O2SAT 98
[2016-06-18] MEDS ORDERED: Sodium Chloride 0.9% 1,000 ML IV ONE ×2 (19:19→21:08)
[2016-06-18 19:33] LABS: BASO % 0.5 % (0.0-2.0); EOS # 0.2 K/uL (0.0-0.7); EOS % 1.7 % (0.0-4.0); HEMATOCRIT 43.1 % (35.0-51.0); LYMPH # 2.6 K/uL (1.0-4.3); LYMPH % 27.8 % (20.0-40.0); MEAN CELL VOLUME 85.3 fL (80.0-94.0); MEAN CORPUSCULAR HGB CONC 35.2 g/dL (33.0-37.0); MEAN PLATELET VOLUME 11.4 fL (7.2-11.7); MONO # 0.6 K/uL (0.0-0.8); MONO % 6.8 % (0.0-10.0); NRBC % 0.1 % (0.0-2.0); RED CELL DISTRIBUTION WIDTH 13.2 % (11.5-14.5); WHITE BLOOD COUNT 9.2 K/uL (4.8-10.8)
--- NOTE | 2016-06-18 19:33 | C.PDOC ---
History Of Present Illness Patient is a 40 year old male, recently diagnosed with DM, who presents to the ER with a complaint of hyperglycemia. Patient was diagnosed a week ago and prescribed glucophage, januvia, and lopid, which he began last night. 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 Patient is currently asymptomatic, denies polyuria , polydipsia, and abdominal pain. Time Seen by Provider: 06/18/16 19:05 Chief Complaint (Nursing): High Blood Sugar History Per: Patient History/Exam Limitations: no limitations Onset/Duration Of Symptoms: Hrs Current Symptoms Are (Timing): Still Present Current Diabetic Medications: Other (Glucophage, januvia, and lopid) Causative (Exacerbating) Factor(s): Other (Unknown) Associated Infectious Symptoms: denies: Urinary Urgency, Urinary Frequency, Other (Abdominal pain) Treatment Prior To Provider Evaluation: Other (Glucophage, januvia, and lopid) Recent travel outside of the [place]: No Past Medical History Reviewed: Historical Data, Nursing Documentation, Vital Signs Vital Signs: Last Vital Signs Temp 99.2 F 06/18/16 18:39 Pulse 99 H 06/18/16 18:39 Resp 15 06/18/16 18:39 BP 129/83 06/18/16 18:47 Pulse Ox 98 06/18/16 19:42 - Medical History PMH: Diabetes, Hypercholesterolemia Surgical History: No Surg Hx Family History: States: Unknown Family Hx - Social History Hx Alcohol Use: No Hx Substance Use: No - Immunization History Hx Tetanus Toxoid Vaccination: No Hx Influenza Vaccination: No Hx Pneumococcal Vaccination: No Review Of Systems Constitutional: Negative for: Other (Polydipsia) Gastrointestinal: Negative for: Abdominal Pain Genitourinary: Negative for: Frequency Physical Exam - Physical Exam Appears: Well, Non-toxic Skin: Normal Color, Warm, Dry Head: Atraumatic, Normacephalic Oral Mucosa: Moist Chest: Symmetrical, No Tenderness Cardiovascular: Rhythm Regular, No Murmur Respiratory: Normal Breath Sounds, No Rales, No Rhonchi, No Wheezing Gastrointestinal/Abdominal: Soft, No Tenderness, No Guarding, No Rebound Neurological/Psych: Oriented x3, Normal Speech, Normal Cognition ED Course And Treatment - Laboratory Results Result Diagrams: 06/18/16 19:27 06/18/16 19:27 Lab Interpretation: Abnormal (Glucose elevated 353, BUN 22 NA 131) O2 Sat by Pulse Oximetry: 98 (Room air) Pulse Ox Interpretation: Normal Reevaluation Time: 23:30 Reassessment Condition: Improved (BS 168 after normal saline 2 liters, glucophage 1000mg and Insulin 5u IVP) Medical Decision Making Medical Decision Making: Plan: * Blood work * Urinalysis * IV fluids Disposition Counseled Patient/Family Regarding: Studies Performed, Diagnosis, Need For Followup - Disposition Disposition: HOME/ ROUTINE Disposition Time: 23:31 Condition: IMPROVED Instructions: Diabetic Hyperglycemia (ED) - Clinical Impression Clinical Impression: Diabetes mellitus, new onset, Hyperglycemia - Scribe Statement The provider has reviewed the documentation as recorded by the Scribtrev Kay All medical record entries made by the Gilbertoibtrev were at my direction and personally dictated by me. I have reviewed the chart and agree that the record accurately reflects my personal performance of the history, physical exam, medical decision making, and the department course for this patient. I have also personally directed, reviewed, and agree with the discharge instructions and disposition.
[2016-06-18 19:42] LABS: CHLORIDE 96 mmol/L (98-107)
[2016-06-18 19:43] LABS: POTASSIUM 4.9 mmol/L (3.6-5.2); SODIUM 131 mmol/L (132-148)
[2016-06-18 19:45] LABS: ALB/GLOB RATIO 1.3 (1.0-2.1); AST/SGOT 57 U/L (17-59); BILIRUBIN,TOTAL 1.4 mg/dL (0.2-1.3); BLOOD UREA NITROGEN 22 mg/dL (9-20); CARBON DIOXIDE 24 mmol/L (22-30); GFR AFRICAN-AMERICAN > 60; TOTAL PROTEIN 7.5 g/dL (6.3-8.3)
[2016-06-18 19:46] LABS: ALKALINE PHOSPHATASE 96 U/L (38-126); ALT/SGPT 68 U/L (21-72); CALCIUM 9.1 mg/dl (8.6-10.4); GLUCOSE,RANDOM 353 mg/dL (75-110)
[2016-06-18 19:51] LABS: RBC URINE < 1 /hpf (0-3); URINE BACTERIA RARE (<OCC); URINE BILIRUBIN NEGATIVE (NEGATIVE); URINE BLOOD NEGATIVE (NEGATIVE); URINE COLOR Yellow (YELLOW); URINE GLUCOSE (UA) 3+ mg/dL (Normal); URINE KETONE 1+ mg/dL (NEGATIVE); URINE LEUKOCYTE ESTERASE NEG Leu/uL (Negative); URINE PROTEIN 1+ mg/dL (NEGATIVE); URINE UROBILINOGEN NORMAL mg/dL (0.2-1.0); WBC URINE 4 /hpf (0-5)
[2016-06-18] MEDS ORDERED: (Novolin R) Insulin Human Regular 100 units/ml vial IV ONE (22:35)
[2016-06-18] MEDS ORDERED: (Novolin R) Insulin Human Regular 100 units/ml vial ONE (22:37)
[2016-06-18 23:35] VITALS: BP 112/66; PULSE 91; RESP 18
== END 2016-06-18 23:36 | disposition home or self-care (01) ==
LOC: C.ER 18:27
DX: E11.65 Type 2 diabetes mellitus with hyperglycemia (principal)
CPT/HCPCS: 80053; 81001; 82948; 85025; 96361; 96374; 99285; J7040

== ENCOUNTER 2016-06-30 21:04 | Emergency (ER) | payer OTHER ==
[2016-06-30 21:15] VITALS: BP 144/85; PULSE 88; TEMP 98.3; O2SAT 97
--- NOTE | 2016-06-30 21:43 | C.PDOC ---
History Of Present Illness 40 yo male who was recently diagnosed with DM, come in for evaluation of blurry vision noted for past 3 days. Pt describes, " its blurry when i read text on my phone or with any reading". Pt sts, had similar sx in past when was diagnosed with new onset of diabetes few weeks ago "and blurry vision resolved as my sugar went down with treatment". Otherwise, pt denies glasses use, denies headache, dizziness, eye pain, floaters, double vision, denies blindness, CP, SOB, dyspnea, abd. pain, N/V/D, denies any other active complaints. Ambulate to ED for evaluation, not in any apparent distress. Time Seen by Provider: 06/30/16 21:31 Chief Complaint (Nursing): Eye Problem History Per: Patient Past Medical History Reviewed: Historical Data, Nursing Documentation, Vital Signs Vital Signs: Last Vital Signs Temp 98.3 F 06/30/16 21:12 Pulse 88 06/30/16 21:12 Resp 19 06/30/16 21:12 BP 144/85 06/30/16 21:12 Pulse Ox 97 06/30/16 21:12 - Medical History PMH: Diabetes, Hypercholesterolemia Family History: States: Diabetes, Other - Social History Hx Tobacco Use: No Hx Alcohol Use: No Hx Substance Use: No - Immunization History Hx Tetanus Toxoid Vaccination: No Hx Influenza Vaccination: No Hx Pneumococcal Vaccination: No Review Of Systems Except As Marked, All Systems Reviewed And Found Negative. Constitutional: Negative for: Fever, Chills Eyes: Positive for: Vision Change (blurry vision). Negative for: Pain, Eyelid Inflammation, Redness ENT: Negative for: Ear Discharge, Throat Pain Cardiovascular: Negative for: Chest Pain, Palpitations, Edema, Light Headedness Respiratory: Negative for: Cough, Shortness of Breath Gastrointestinal: Negative for: Nausea, Vomiting, Abdominal Pain, Diarrhea Genitourinary: Negative for: Incontinence Musculoskeletal: Negative for: Neck Pain, Back Pain Skin: Negative for: Rash, Bruising Neurological: Negative for: Weakness, Numbness, Altered Mental Status, Headache , Dizziness Physical Exam - Physical Exam Appears: Well, Non-toxic, No Acute Distress Skin: Normal Color, Warm, No Rash Eye(s): bilateral: Normal Inspection, PERRL, EOMI Throat: Normal Neck: Supple Cardiovascular: Rhythm Regular, No Friction Rub, No Murmur Respiratory: No Stridor, No Wheezing Gastrointestinal/Abdominal: Soft, No Tenderness Extremity: No Pedal Edema Neurological/Psych: Oriented x3, Normal Speech, Normal Motor, Normal Sensation, Normal Reflexes ED Course And Treatment O2 Sat by Pulse Oximetry: 97 Pulse Ox Interpretation: Normal Progress Note: On re-eavl, pt is afebrile, hemodynamicaly stable. NOn-toxic. FSBS 189. VA: R20/13, L 20/13, B/L 20/20 w/o correction. B/l eyes: PEERLA, no pain or limitation on extraocula movement. Neurologicaly intact. Pt advised and ref. tpo F/u with Opht in 1-2 days for re-eval. return to Ed if any worsening ro new changes. Disposition Counseled Patient/Family Regarding: Diagnosis, Need For Followup - Disposition Referrals: [facility] [Outside] [employer] [facility] [Outside] Gary Romeo MD [Staff Provider] - Bello Allison MD [Staff Provider] - Disposition: HOME/ ROUTINE Disposition Time: 21:41 Condition: STABLE Additional Instructions: Follow up with Ophthalmology in 1-2 days for re-evaluation return to ED if any worsening or new changes. Instructions: Blurred Vision (ED), Diabetes Mellitus Type 2 in Adults (ED), Diabetic Retinopathy (ED) - Clinical Impression Clinical Impression: Blurry vision, Diabetes
[2016-06-30 22:01] VITALS: RESP 20
== END 2016-06-30 22:01 | disposition home or self-care (01) ==
LOC: C.ER 21:04
DX: H53.8 Other visual disturbances (principal); E11.9 Type 2 diabetes mellitus without complications

== ENCOUNTER 2017-03-17 20:32 | Emergency (ER) | payer OTHER ==
[2017-03-17 20:33] VITALS: BMI 28.8
[2017-03-17 21:03] VITALS: BP 154/78; PULSE 74; RESP 20; TEMP 98.1; O2SAT 99
--- NOTE | 2017-03-17 21:43 | C.PDOC ---
History Of Present Illness 41 yo male w/o significant PMHx come in for evaluation of bodyaches, chills, dry cough gradualy developed for past 3-4 days. (+) similar sx in family member. Otherwise, pt denies high fever, headache, dizziness, drooling, dysphagia, dyspnea, SOB, wheezing, abd. pain, vomiting, diarrhea, change in appetit. Ambulate to Ed for evaluation, no in any apparent distress. Time Seen by Provider: 03/17/17 21:32 Chief Complaint (Nursing): Cough, Cold, Congestion History Per: Patient Onset/Duration Of Symptoms: Gradual Past Medical History Reviewed: Historical Data, Nursing Documentation, Vital Signs Vital Signs: Last Vital Signs Temp 98.1 F 03/17/17 21:00 Pulse 74 03/17/17 21:00 Resp 20 03/17/17 21:00 BP 154/78 H 03/17/17 21:00 Pulse Ox 99 03/17/17 21:00 - Medical History PMH: Diabetes (diet control), Hypercholesterolemia Family History: States: Unknown Family Hx, Diabetes - Social History Hx Tobacco Use: No Hx Alcohol Use: No Hx Substance Use: No - Immunization History Hx Tetanus Toxoid Vaccination: No Hx Influenza Vaccination: No Hx Pneumococcal Vaccination: No Review Of Systems Except As Marked, All Systems Reviewed And Found Negative. Constitutional: Positive for: Chills, Malaise ENT: Positive for: Nose Discharge, Nose Congestion. Negative for: Ear Discharge , Throat Pain Cardiovascular: Negative for: Chest Pain, Palpitations Respiratory: Positive for: Cough. Negative for: Shortness of Breath, Wheezing Gastrointestinal: Negative for: Nausea, Vomiting, Abdominal Pain, Diarrhea Genitourinary: Negative for: Dysuria Musculoskeletal: Negative for: Neck Pain, Back Pain Skin: Negative for: Rash Neurological: Negative for: Weakness, Numbness, Altered Mental Status, Headache , Dizziness Physical Exam - Physical Exam Appears: Well, Non-toxic, No Acute Distress Skin: Normal Color, Warm, Dry, No Rash Head: Normacephalic Eye(s): bilateral: PERRL Ear(s): Bilateral: Normal Nose: No Flaring, Discharge (clear B/L), No Tenderness Oral Mucosa: Moist, No Drooling Tongue: Normal Appearing Throat: No Erythema, No Drooling Neck: Trachea Midline, Supple Cardiovascular: Rhythm Regular, No Murmur, No JVD Respiratory: No Decreased Breath Sounds, No Accessory Muscle Use, No Stridor, No Wheezing Gastrointestinal/Abdominal: Soft, No Tenderness, No Distention, No Guarding Back: No CVA Tenderness Extremity: Normal ROM, No Deformity, No Swelling Neurological/Psych: Oriented x3, Normal Speech ED Course And Treatment O2 Sat by Pulse Oximetry: 99 Pulse Ox Interpretation: Normal Progress Note: On re-evaluation, pt is afebrile, hemodynamicaly stable. Non- toxic. Tolerate Po well in Ed. PusleOx 99% RA. Neck: Supple, (-) meningeal sign, (-) JVD. ENT: no acute findings. Lungs: CTA B/L, BS equal B/L. Abd: benign, (-) guarding, (-) rebound. back: (-) CVA tenderness. Pt has clinical findings c/w viral illness. Pt advised. ref. to f/u with PMD in 2-3 days for re-eval. return to ED if any worsening or new changes. Disposition Counseled Patient/Family Regarding: Diagnosis, Need For Followup - Disposition Referrals: [facility] [Outside] Disposition: HOME/ ROUTINE Disposition Time: 21:40 Condition: STABLE Additional Instructions: ENCOURAGE FLUIDS IBUPROFEN/TYLENOL NEED FOR PAIN, FEVER FOLLOW UP WITH PMD IN 2-3 DAYS FOR RE-EVALUATION. RETURN O ED IF ANY WORSENING OR NEW CHANGES. Instructions: Viral Syndrome (ED) - Clinical Impression Clinical Impression: Viral disease
== END 2017-03-17 21:50 | disposition home or self-care (01) ==
LOC: C.ER 20:32
DX: B34.9 Viral infection, unspecified (principal)